=== PATIENT | female | born 1970 | race Caucasian/White ===

== ENCOUNTER → 2016-11-24 | Outpatient (CLI) | payer OTHER | LOC: FIMAGING 08:09 | PROVIDERS: ATTEND Obstetrics & Gynecology Gynecology | DX: Z12.31 Encounter for screening mammogram for malignant neoplasm of breast (principal) | CPT/HCPCS: G0202 ==

== ENCOUNTER → 2017-10-16 | Outpatient (CLI) | payer OTHER | LOC: FIMAGING 13:43 | PROVIDERS: ATTEND Obstetrics & Gynecology Gynecology | DX: N92.6 Irregular menstruation, unspecified (principal) ==